=== PATIENT | male | born 1965 | race African-American/Black ===

== ENCOUNTER 2020-08-23 09:16 | Inpatient (IN) | payer OTHER ==
[~2020-08-23] VITALS: Ht 180.3 cm; Wt 93.3 kg
[2020-08-23 10:42] LABS: COLLECTION METHOD CLEAN CATCH
[2020-08-23 10:52] LABS: ARTERIAL BLD GAS O2 SATURATION 96.8 % (92-100); ARTERIAL BLD GAS TCO2 CT 17.5; ARTERIAL BLOOD GAS BASE EXCESS -2.1 (-2-2); ARTERIAL BLOOD GAS HCO3 16.9 meq/L (22-26); ARTERIAL BLOOD GAS PO2 75.3 mmHg (80-100); ARTERIAL BLOOD GAS pH 7.58 (7.35-7.45)
[2020-08-23 10:52] LABS: BASO % 0.4 % (0.0-2.0); GRAN % 75.2 % (42.2-75.2); HEMATOCRIT 42.2 % (42.0-52.0); LYMPH # 0.6 (1.2-3.4); LYMPH % 20.3 % (20.0-51.0); MEAN CELL VOLUME 89 fl (80.0-100.0); MEAN CORPUSCULAR HEMOGLOBIN 32 pg (27.0-31.0); MEAN CORPUSCULAR HGB CONC 36 g/dl (33.0-37.0); MEAN PLATELET VOLUME 9.4 fl (7.4-10.4); MONO # 0.1 (0.1-0.6); MONO % 3.7 % (1.7-9.3); PLATELET COUNT 138 K/mm3 (130-400); RED BLOOD COUNT 4.76 M/mm3 (4.20-5.60); REDCELL DISTRIBUTION WIDTH-CV 11.5 % (11.5-14.5)
[2020-08-23 10:53] LABS: INR 1.2 (0.8-3.0); MUCOUS Present /lpf; PH 5 (5-8); PROTHROMBIN TIME 13.2 SECONDS (9.7-12.8); SQUAMOUS EPITHELIAL 0-2 /hpf; URINE APPEARANCE Hazy; URINE BACTERIA None Seen /hpf; URINE BILIRUBIN Negative (NEGATIVE); URINE BLOOD Negative (NEGATIVE); URINE COLOR Amber; URINE GLUCOSE Negative (NEGATIVE); URINE KETONE 1+ (NEGATIVE); URINE LEUKOCYTE ESTERASE Negative (NEGATIVE); URINE NITRATE Negative (NEGATIVE); URINE PROTEIN(semi-quant) Negative (NEGATIVE); URINE RBC 0-2 /hpf; URINE UROBILINOGEN >=4.0 mg/dL (NEGATIVE)
[2020-08-23 10:53] LABS: ARTERIAL BLOOD GAS PCO2 18.7 mmHg (35-45)
[2020-08-23 11:03] LABS: ALANINE AMINOTRANSFERASE 64 U/L (4-49); ALBUMIN 4.3 gm/dL (3.5-5.0); ALKALINE PHOSPHATASE 135 U/L (50-136); ANION GAP 11 mmol/L (7-16); AST,SGOT 70 U/L (15-37); BLOOD UREA NITROGEN 14 mg/dL (9-20); CALCIUM 8.5 mg/dL (8.4-10.2); CARBON DIOXIDE 25 mmol/L (22-30); CHLORIDE 98 mmol/L (98-107); CREATININE, serum 0.94 (0.66-1.25); GLUCOSE 105 mg/dL (74-106); POTASSIUM 3.4 mmol/L (3.4-5.0); SODIUM 135 mmol/L (137-145); TOTAL PROTEIN 7.6 gm/dL (6.4-8.2)
[2020-08-23 11:12] LABS: TROPONIN-I < 0.012 ng/mL (0.000-0.035)
[2020-08-23 15:14] VITALS: BP 134/58; PULSE 77; TEMP 98.5
[2020-08-23 16:12] VITALS: BP 134/58; PULSE 77; TEMP 98.5
--- NOTE | 2020-08-23 19:04 | NUR ---
Pt arrived to room 306 around 1330 via WC from ER. Pt A&O, independent in room, on room air. Admission, med rec, allergies completed. Pt c/o SOB, occasional dizziness, none at this time. pt c/o of headache and general body aches. Afebrile. Received tylenol in ER for fever and on floor for headache and general body aches. Upper lobe LS crackles, bases diminished, cough, no production. 20G RAC flushes w/o difficulty. Pt placed on 2L NC, was satting at 94%, some labored breathing. pt appears better w/ 2L, satting at 95%. Tele placed on patient. Tolerated jello, dinner tray delivered. No skin issues or edema noted. Pt denies diarrhea, states it may have been a day or two since last BM. BS active X4. heart RRR. Pt oriented to room and POC, all questions answered, no further needs.
--- NOTE | 2020-08-23 19:39 | NUR ---
Received report from [facility] B[facility]. Pt resting in room, currently on 2 L/min O2 by nasal cannula. Denies needs at this time. This RN to call consult to infectious disease, Dr. Wall.
[2020-08-23 20:00] VITALS: BP 96/60; PULSE 69; TEMP 98.4
--- NOTE | 2020-08-23 21:42 | NUR ---
Assessment complete. Pt resting in bed watching tv. Denies pain, reports shortness of breath with exertion and when taking deep breaths. Currently on 2L O2 by NC. Lungs clear to auscultation all anaya, breathing regular and unlabored. NS started at 100 ml/hr to right AC IV. Denies other needs at this time. Will continue to monitor.
[2020-08-24] VITALS: BP 98/62; PULSE 75; TEMP 98.2
[2020-08-24 04:00] VITALS: BP 92/58; PULSE 73; TEMP 98.5
--- NOTE | 2020-08-24 06:27 | NUR ---
Pt remains on 2 L O2 by nasal cannula. Reports shortness of breath with exertion. Reports increasingly productive cough. Denies pain. Fluids running at 100 ml/hr.
[2020-08-24 08:26] VITALS: BP 110/72; PULSE 71; TEMP 98.1
--- NOTE | 2020-08-24 08:35 | NUR ---
PT IN BED AT THIS TIME. VERY SOA, PT SATURATIONS IN THE MID 90'S ON 2L, HOWEVER WHEN PT IS TRYING TO CATCH HIS BREATH, HIS SATURATIONS DROP TO 89-90% INCREASED O2 NEEDS TO 3L, PT NOW SATURATING 92%. WILL ASK DOCTOR FOR INHALER/BREATHING TREATMENT. CALL LIGHT WITHIN REACH, NO FURTHER CONCERNS AT THIS TIME.
[2020-08-24 08:56] LABS: HEMATOCRIT 37.6 % (42.0-52.0); HEMOGLOBIN 13.4 g/dl (13.5-18.0); MEAN CELL VOLUME 89 fl (80.0-100.0); MEAN CORPUSCULAR HEMOGLOBIN 32 pg (27.0-31.0); MEAN CORPUSCULAR HGB CONC 36 g/dl (33.0-37.0); MEAN PLATELET VOLUME 9.3 fl (7.4-10.4); PLATELET COUNT 141 K/mm3 (130-400); RED BLOOD COUNT 4.24 M/mm3 (4.20-5.60); REDCELL DISTRIBUTION WIDTH-CV 11.7 % (11.5-14.5)
[2020-08-24 09:03] LABS: CALCIUM 8.1 mg/dL (8.4-10.2); CREATININE, serum 0.62 (0.66-1.25); POTASSIUM 3.8 mmol/L (3.4-5.0)
[2020-08-24 09:25] LABS: BAND 12 % (0-10); LYMPHOCYTE 9 % (20.0-51.0); NEUTROPHILS 76 % (42.0-75.2); PLATELET ESTIMATE NORMAL (NORMAL)
[2020-08-24 09:59] LABS: ARTERIAL BLD GAS O2 SATURATION 95.9 % (92-100); ARTERIAL BLD GAS TCO2 CT 20.9; ARTERIAL BLOOD GAS BASE EXCESS -2.7 (-2-2); ARTERIAL BLOOD GAS PCO2 29.3 mmHg (35-45); ARTERIAL BLOOD GAS PO2 77.3 mmHg (80-100); ARTERIAL BLOOD GAS pH 7.45 (7.35-7.45)
[2020-08-24 11:33] VITALS: BP 137/58; PULSE 75; TEMP 98.1
--- NOTE | 2020-08-24 15:08 | NUR ---
Risk And Compliance Analytics Director attempted to contact patient by phone and left a message as patient is COVID positive. SW contacted patient's , Sergo (ph#[phone]) to discuss discharge planning. Patient lives [place] with his Sergo and doesn't have a primary care physician at this time. Sergo reports they have not set up primary care because they moved from [place], [place] to [place] just a year ago. Sergo reports she and patient traveled to [place] for a sikh revival where patient then became sick. Sergo reports she feels fine so far. Patient obtains medications from [facility]. Patient does not use any DME and is normally independent with [facility]. Sergo reports the plan is for her to drive patient back to [place] upon discharge. [facility] will continue to follow.
[2020-08-24 16:24] VITALS: BP 108/72; PULSE 68; TEMP 98.3
--- NOTE | 2020-08-24 18:42 | NUR ---
Report received from [facility]. Pt resting in bed, currently on 3 L O2 by nasal cannula. Orders to put IV fluids on hold due to adequate PO intake. Fluids stopped and right AC site flushed. No needs expressed at this time.
--- NOTE | 2020-08-24 19:14 | NUR ---
PT HAD UNEVENTFUL DAY. VSS. O2 REQUIREMENT REMAINS AT 3L. NO C/O PAIN OR DISCOMFORT. NO FURTHER CONCERNS.
[2020-08-24 19:30] VITALS: BP 112/74; PULSE 77; TEMP 98.2
--- NOTE | 2020-08-24 19:30 | NUR ---
Assessment completed. Pt sitting up in bed. Denies pain at this time. Reports improvement in shortness of breath and denies SOA at this time. Currently on 3 L O2 by nasal cannula with O2 sats at 94%. Lungs clear to auscultation over all anaya. Pt remains afebrile, productive cough noted but improving. Tolerating PO intake of food and fluids well. IV fluids discontinued today. Pt ambulates indpendently in room, gait steady, A&O x4. Denies any other needs at this time. Will continue to monitor.
[2020-08-25 00:36] VITALS: BP 110/60; BP 124/62; PULSE 62; PULSE 86; TEMP 97.5; TEMP 98
[2020-08-25 04:23] VITALS: BP 114/62; PULSE 68; TEMP 98
--- NOTE | 2020-08-25 07:14 | NUR ---
Pt resting in bed. Slept through much of shift. Denies pain or SOA. Currently on 3L O2 by nasal cannula.
--- NOTE | 2020-08-25 09:00 | NUR ---
Pt had discussion with this RN about POC. Told pt we will discuss with Dr. Stiles who will be rounding the COVID unit soon. Pt is seemingly anxious regarding treatment, and his current condition. Pt does not have any complaints, Assessement completed. No further concerns.
[2020-08-25 09:07] VITALS: BP 108/64; PULSE 67; TEMP 98.2
[2020-08-25 09:10] LABS: BASO % 0.1 % (0.0-2.0); GRAN # 7.1 (1.4-6.5); HEMATOCRIT 39.6 % (42.0-52.0); LYMPH # 0.6 (1.2-3.4); MEAN CELL VOLUME 89 fl (80.0-100.0); MEAN CORPUSCULAR HEMOGLOBIN 32 pg (27.0-31.0); MEAN CORPUSCULAR HGB CONC 35 g/dl (33.0-37.0); MEAN PLATELET VOLUME 9.3 fl (7.4-10.4); MONO # 0.4 (0.1-0.6); MONO % 4.5 % (1.7-9.3); PLATELET COUNT 171 K/mm3 (130-400); RED BLOOD COUNT 4.43 M/mm3 (4.20-5.60); REDCELL DISTRIBUTION WIDTH-CV 11.9 % (11.5-14.5)
[2020-08-25 09:20] LABS: CALCIUM 8.3 mg/dL (8.4-10.2); CREATININE, serum 0.69 (0.66-1.25); POTASSIUM 3.9 mmol/L (3.4-5.0)
[2020-08-25 12:09] VITALS: BP 114/67; PULSE 67; TEMP 98.2
[2020-08-25] MEDS ORDERED: MUCUS RELIEF200 MG PO (15:07)
[2020-08-25] MEDS ORDERED: DECADRON6 MG PO (15:09)
--- NOTE | 2020-08-25 15:26 | NUR ---
Nuclear Radiologist contacted patient by phone as he is going to require oxygen at discharge (3 liters with ambulation). [facility] contacted [facility] out of [place] as they are a nation wide company and can follow patient to [place]. Patient is agreeable to [facility] and states that he and his will leave for [place] tomorrow morning. Patient states ideally he would like to drive straight through but they will likely have to stay overnight at a hotel at some point. [facility] collaborated with [facility] [facility] and faxed over order for oxygen, RT assessment, H&P, Facesheet, and Insurance Card. Nargis reports she spoke with patient and they are on their way to deliver oxygen at concentrator for patient. [facility] contacted patient's , Sergo and left a message. [facility] provided update to [facility]. No additional needs at this time.
== END 2020-08-25 17:00 | disposition home or self-care (01) | DRG 177 ==
LOC: COL.ER 09:16 → MEDICAL 12:39
PROVIDERS: Nurse Practitioner Primary Care; ADMIT Student in an Organized Health Care Education/Training Program
DX: U07.1 COVID-19 (principal); J96.01 Acute respiratory failure with hypoxia; E87.3 Alkalosis; D72.819 Decreased white blood cell count, unspecified; R73.9 Hyperglycemia, unspecified
CPT/HCPCS: 99222-AI; 99232-AI; 99239; J1100; J7030